=== PATIENT | male | born 1955 | race Caucasian/White ===

== ENCOUNTER 2017-03-23 13:25 | Inpatient (IN) | payer BC ==
[~2017-03-23] VITALS: Ht 160 cm; Wt 76.5 kg
[2017-03-23] MEDS ORDERED: SODIUM CHLORIDE 0.9% 1000ML 1,000 ML IV STA (14:15)
[2017-03-23] MEDS ORDERED: OPTIRAY 320 IV PRN (14:15)
[2017-03-23 14:16] LABS: URINE APPEARANCE CLEAR (CLEAR); URINE BILIRUBIN NEG (NEG); URINE COLOR YELLOW; URINE NITRITE NEG (NEG); URINE PH 6.5 (4.5-7.5); URINE SPECIFIC GRAVITY 1.031 (1.000-1.030); UROBILINOGEN NEG (NEG); ZZUR CULT IF INDIC CLEAN CATCH NO
[2017-03-23 14:17] LABS: MANUAL MICROSCOPIC REQUIRED? NO; REVIEW REQ? NO
--- NOTE | 2017-03-23 14:23 | EMERGENCY ROOM VISIT NOTE ---
History First contact with patient: 13:48 Chief Complaint: ABDOMINAL PAIN Stated Complaint: PAIN LEFT SIDE Nursing Triage Summary: triage note: pt reports left abd pain since yesterday. pt reports he has had pain like this before and it was diverticultis. History of Present Illness The patient is a 61 year old male who presents to the Emergency Room with complaints of abdominal pain. The patient states the pain began yesterday, and came out of nowhere. The patient states the pain is all in his left lower quadrant of the abdomen. He states the pain is sharp, worse when standing from a sitting position. The patient states the pain is better with lying still warm once he is up and moving around. The patient states the pain feels like diverticulitis, which he had approximately 8 years ago. The patient did take some Tylenol yesterday, and states that it did ease the pain somewhat. He rates his pain 5/10 and describes it as sharp. The patient denies any fever, chills, nausea, vomiting, diarrhea, constipation, chest pain, difficulty breathing, headache, dizziness, altered mental status. Review of Systems A complete 10 point review of systems was reviewed with the patient with pertinent positives and negatives as per history of present illness. All else were negative. Past Medical/Surgical History Medical Problems: (1) Acute diverticulitis Diverticulitis Social History Smoking Status: Never Smoker Smokeless Tobacco Use: No Alcohol Use: none Drug Use: none Marital Status: Housing Status: lives with family Occupation Status: employed Current/Historical Medications No Active Prescriptions or Reported Meds Allergies None Physical Exam Vital Signs Date Time Temp Pulse Resp B/P (MAP) Pulse Ox O2 Delivery O2 Flow Rate FiO2 03/23/17 18:24 98 18 124/78 92 Room Air 03/23/17 16:30 85 25 94 03/23/17 16:25 82 27 96 03/23/17 15:55 76 25 96 03/23/17 15:25 79 25 94 03/23/17 15:02 80 14 150/81 94 Room Air 03/23/17 15:02 150/85 03/23/17 14:55 84 25 03/23/17 14:31 155/106 03/23/17 14:25 79 27 95 03/23/17 14:09 91 20 173/102 96 Room Air 03/23/17 14:09 81 03/23/17 14:05 173/102 9/4/17 13:39 36.8 86 18 166/91 95 Room Air Physical Exam VITALS: Vitals are noted on the nurse's note and reviewed by myself. Vital signs stable. GENERAL: This is a 61-year-old white male, in no acute distress, nondiaphoretic , well-developed well-nourished. SKIN: The skin was without rashes, erythema, edema, or bruising. There is no tenting of the skin. Capillary reflex less than 2 seconds. HEAD: Normocephalic atraumatic. EARS: External auditory canals clear, tympanic membranes pearly burnett without erythema or effusion bilaterally. EYES: Pupils equal round and reactive to light and accommodation. Conjunctivae without injection, sclerae without icterus. Extraocular movements intact. NOSE: Patent, turbinates without inflammation or discharge. No sinus tenderness. MOUTH: Mucous membranes moist. Tonsils are not enlarged. Pharynx without erythema or exudate. Uvula midline. Airway patent. Tongue does not deviate. NECK: Supple without nuchal rigidity. No lymphadenopathy. No thyromegaly. Cervical spine is nontender. No JVD. HEART: Regular rate and rhythm without murmurs gallops or rubs. LUNGS: Clear to auscultation bilaterally without wheezes, rales or rhonchi. No dullness to percussion. No retractions or accessory muscle use. ABDOMEN: Positive bowel sounds x 4. Normal tympanic percussion. Significant tenderness on palpation of the left lower quadrant. Otherwise, the abdomen was soft, nontender, without masses or organomegaly. Haines sign negative. No guarding or rebound tenderness. MUSCULOSKELETAL: No muscle atrophy, erythema, or edema noted. Full range of motion without joint tenderness in all extremities. No tenderness to palpation. Normal gait. Strength 5/5 throughout. NEURO: Patient was alert and oriented to person place and time. Normal sensation to light and sharp touch. Deep tendon reflexes 2+ throughout. No focal neurological deficits. Medical Decision & Procedures ER Provider Diagnostic Interpretation: Urinalysis was negative for hematuria or white blood cells. Laboratory Results 03/23/17 14:44 Red Blood Count 4.70, Mean Corpuscular Volume 91.3, Mean Corpuscular Hemoglobin 31.1, Mean Corpuscular Hemoglobin Concent 34.0, Mean Platelet Volume 10.3, Neutrophils (%) (Auto) 75.5, Lymphocytes (%) (Auto) 15.6, Monocytes (%) (Auto) 7.7, Eosinophils (%) (Auto) 0.7, Basophils (%) (Auto) 0.3, Neutrophils # (Auto) 9.05, Lymphocytes # (Auto) 1.87, Monocytes # (Auto) 0.92, Eosinophils # (Auto) 0.08, Basophils # (Auto) 0.03 03/23/17 14:44 Test 03/23/17 13:56 03/23/17 14:00 03/23/17 14:44 Creatine Kinase MB Ratio (0-3.0) Urine Color YELLOW Urine Appearance CLEAR (CLEAR) Urine pH 6.5 (4.5-7.5) Urine Specific [place] 1.031 (1.000-1.030) Urine Protein NEG (NEG) Urine Glucose (UA) NEG (NEG) Urine Ketones NEG (NEG) Urine Occult Blood NEG (NEG) Urine Nitrite NEG (NEG) Urine Bilirubin NEG (NEG) Urine Urobilinogen NEG (NEG) Urine Leukocyte Esterase TRACE (NEG) Urine WBC (Auto) 5-10 /hpf (0-5) Urine RBC (Auto) 0-4 /hpf (0-4) Urine Hyaline Casts (Auto) 1-5 /lpf (0-5) Urine Epithelial Cells (Auto) 5-10 /lpf (0-5) Urine Bacteria (Auto) NEG (NEG) White Blood Count 11.97 K/uL (4.8-10.8) Red Blood Count 4.70 M/uL (4.7-6.1) Hemoglobin 14.6 g/dL (14.0-18.0) Hematocrit 42.9 % (42-52) Mean Corpuscular Volume 91.3 fL (80-100) Mean Corpuscular Hemoglobin 31.1 pg (25-34) Mean Corpuscular Hemoglobin Concent 34.0 g/dl (32-36) Platelet Count 166 K/uL (130-400) Mean Platelet Volume 10.3 fL (7.4-10.4) Neutrophils (%) (Auto) 75.5 % Lymphocytes (%) (Auto) 15.6 % Monocytes (%) (Auto) 7.7 % Eosinophils (%) (Auto) 0.7 % Basophils (%) (Auto) 0.3 % Neutrophils # (Auto) 9.05 K/uL (1.4-6.5) Lymphocytes # (Auto) 1.87 K/uL (1.2-3.4) Monocytes # (Auto) 0.92 K/uL (0.11-0.59) Eosinophils # (Auto) 0.08 K/uL (0-0.5) Basophils # (Auto) 0.03 K/uL (0-0.2) RDW Standard Deviation 43.2 fL (36.4-46.3) RDW Coefficient of Variation 13.0 % (11.5-14.5) Immature Granulocyte % (Auto) 0.2 % Immature Granulocyte # (Auto) 0.02 K/uL (0.00-0.02) Prothrombin Time 11.3 SECONDS (9.0-12.0) Prothromb Time International Ratio 1.1 (0.9-1.1) Anion Gap 6.0 mmol/L (3-11) Est Creatinine Clear Calc Drug Dose 75.6 ml/min Estimated GFR () 103.7 Estimated GFR (Non- 89.5 BUN/Creatinine Ratio 14.1 (10-20) Calcium Level 8.6 mg/dl (8.5-10.1) Total Bilirubin 0.9 mg/dl (0.2-1) Aspartate Amino Transf (AST/SGOT) 14 U/L (15-37) Alanine Aminotransferase (ALT/SGPT) 27 U/L (12-78) Alkaline Phosphatase 58 U/L (45-117) Creatine Kinase MB 0.8 ng/ml (0.5-3.6) Troponin I < 0.015 ng/ml (0-0.045) Total Protein 7.4 gm/dl (6.4-8.2) Albumin 3.5 gm/dl (3.4-5.0) Globulin 3.9 gm/dl (2.5-4.0) Albumin/Globulin Ratio 0.9 (0.9-2) Lipase 82 U/L (73-393) Medications Administered Medications (Trade) Dose Ordered Sig/Calos Route Start Time Stop Time Status Last Admin Dose Admin Sodium Chloride 1,000 ml @ 999 mls/hr Q1H1M STAT IV 03/23/17 14:15 03/23/17 15:15 DC 03/23/17 14:59 999 MLS/HR Ciprofloxacin/ Dextrose (Cipro / D5W) 400 mg NOW STAT IV 03/23/17 18:30 03/23/17 18:33 DC 03/23/17 18:40 400 MG Sodium Chloride 1,000 ml @ 125 mls/hr Q8H IV 03/23/17 18:30 04/22/17 18:29 03/23/17 20:18 125 MLS/HR ECG Indication: abdominal pain Rate (beats per minute): 77 Rhythm: normal sinus Findings: no acute ischemic change, no ectopy Comparison ECG Date: no prior available ED Course The patient was seen and evaluated as above. I did offer the patient pain medication, and he declines at this time. Labs and radiology studies were ordered at this time. The patient was given 1 L normal saline solution bolus. All studies were reviewed by myself, with CT scan reviewed by radiologist as well. I did discuss the findings with the patient at bedside. I discussed the case with Dr. English, general surgeon, who did recommend admission, but states he is uncertain whether the finding is an actual abscess. He states he would like the patient admitted under the hospitalist surgeon, and he will consult. I spoke with Dr. Johnson regarding hospitalization. He states the hospitalist service will accept the admission. He did ask that I start the patient on IV antibiotics. The patient was started on IV Cipro and Flagyl. The patient was admitted in good condition. Medical Decision The patient presented today with left lower quadrant abdominal pain, similar to pain he experienced with diverticulitis. Based on the patient's workup, it does appear that his discomfort is coming from an acute diverticulitis. The patient's CT scan did show possible abscess versus focally inflamed diverticulum , so I do feel that admission is necessary for IV antibiotics and further monitoring. Differential diagnosis includes: Cholecystitis, diverticulitis, pancreatitis, GERD, bowel obstruction, malignancy, cardiac etiology, and others. Medication Reconcilliation Current Medication List: was personally reviewed by me Blood Pressure Screening Patient's blood pressure: Normal blood pressure Impression Primary Impression: Acute diverticulitis Departure Information Dispostion Home / Self-Care Condition GOOD Prescriptions No Active Prescriptions or Reported Meds Referrals Vinicio Gaines M.D. (PCP) Patient Instructions ED Diverticulitis, [facility]
[2017-03-23 15:11] LABS: BASO % 0.3 %; BASO ABS # 0.03 K/uL (0-0.2); COMPLETE YES; EOS % 0.7 %; HEMATOCRIT 42.9 % (42-52); IG% 0.2 %; LYMPH % 15.6 %; LYMPH ABS # 1.87 K/uL (1.2-3.4); MEAN CELL VOLUME 91.3 fL (80-100); MEAN CORPUSCULAR HEMOGLOBIN 31.1 pg (25-34); MEAN PLATELET VOLUME 10.3 fL (7.4-10.4); MONO % 7.7 %; NEUT % 75.5 %; PLATELET COUNT 166 K/uL (130-400); WHITE BLOOD COUNT 11.97 K/uL (4.8-10.8)
[2017-03-23 15:27] LABS: ALT/SGPT 27 U/L (12-78); AST/SGOT 14 U/L (15-37); BLOOD UREA NITROGEN 13 mg/dl (7-18); BUN/CREATININE RATIO 14.1 (10-20); CALCIUM 8.6 mg/dl (8.5-10.1); CARBON DIOXIDE 26 mmol/L (21-32); CHLORIDE 106 mmol/L (98-107); CREATININE 0.92 mg/dl (0.60-1.40); GLUCOSE 167 mg/dl (70-99); POTASSIUM 3.6 mmol/L (3.5-5.1); SODIUM 138 mmol/L (136-145)
[2017-03-23 15:32] LABS: ALB/GLOB RATIO 0.9 (0.9-2); ALKALINE PHOSPHATASE 58 U/L (45-117)
--- NOTE | 2017-03-23 17:06 | DIAGNOSTIC IMAGING REPORT ---
ABD/PELVIS IV AND ORAL CONT HISTORY: 61 years-old Male LLQ Abdominal pain, hx. diverticulitis acute left lower quadrant abdominal pain with history of diverticulitis. Initial exam. COMPARISON: CT abdomen and pelvis 11/26/2006 TECHNIQUE: Multiple axial CT images of the abdomen and pelvis were obtained following the intravenous administration of 93 mL Optiray 320. Oral contrast also used. A dose lowering technique was used consistent with the principals of [place]. FINDINGS: There is mild dependent bibasilar atelectasis. Inferior cardiac chambers are unremarkable. Mild bilateral gynecomastia. The liver, spleen, gallbladder, pancreas and adrenal glands are within normal limits. Kidneys, ureters, urinary bladder are unremarkable. Prostate is mildly enlarged with central coarse parenchymal calcifications. Abdominal aorta is normal in course and caliber with mild atherosclerotic plaquing. No bulky adenopathy. There is no bowel obstruction. There is circumferential wall thickening with moderate surrounding inflammatory stranding and mucosal hyperemia involving the mid descending colon which appears to be centered around several diverticula within this region compatible with acute diverticulitis. There is a focal inflamed diverticulum or developing small intramural abscess, 1.4 x 1.6 cm seen on image 266. There is wall thickening and nondistention involving the descending colon distal to this area as well as the sigmoid colon. There is a small focus of extraluminal air anterior to the inflamed descending colon seen on image 248 compatible with microperforation. There is no bowel obstruction. Soft tissues are unremarkable. Bones are intact. Severe intervertebral disc space narrowing seen at L4-L5 and L5-S1. IMPRESSION: 1. Findings compatible with acute diverticulitis of the distal descending colon. Focus of extraluminal air anterior to the colon is compatible with associated microperforation. 2. Focally inflamed diverticulum or small developing intramural abscess is seen, 1.4 x 1.6 cm. The above report was generated using voice recognition software. It may contain grammatical, syntax or spelling errors. Electronically signed by: Guilherme Boyd M.D. 03/23/2017 5:05 PM Dictated Date/Time: 03/23/2017 4:56 PM
[2017-03-23] MEDS: METRONIDAZOLE 500MG / 100ML NSS IV STA ×2 (18:30→21:09)
[2017-03-23] MEDS ORDERED: MAGNESIUM HYDROXIDE SUSP 30 ML UDC PO PRN (18:30)
[2017-03-23] MEDS ORDERED: ONDANSETRON INJ 2 MG/ML 2 ML VIAL IV PRN (18:30)
[2017-03-23] MEDS ORDERED: CIPROFLOXACIN 400MG / 200ML D5W IV STA (18:30)
[2017-03-23] MEDS ORDERED: ACETAMINOPHEN 325 MG TAB PO PRN (18:30)
[2017-03-23] MEDS ORDERED: ALUMINUM/MAGNESIUM/SIMETH (MAALOX MAX) 30 ML UDC PO PRN (18:30)
[2017-03-23] MEDS ORDERED: POLYETHYLENE (MIRALAX) 17 GM PACK PO PRN (18:30)
--- NOTE | 2017-03-23 18:50 | History and Physical ---
History & Physical Date & Time of Service: Mar 23, 2017 at 18:39 Chief Complaint: Pain Left Side Primary Care Physician: Vinicio Gaines M.D. History of Present Illness Source: patient, family ( at bedside), clinic records, hospital records Patient is a pleasant 61 y/o male, with PMHx of diverticulitis, who presented to the ED with complaints of LLQ abdominal pain x1 day. Pain started yesterday. Worse with movements; 0/10 with no movement. +decreased appetite. Presentation is similar to past episodes of acute diverticulitis- this is his 3 episode ( previous episode in 2006). Last colonoscopy in 2006- diverticular disease, denies any other abnormalities. Patient denies any fever, chills, sweats, lightheadedness, dizziness, vision changes, CP, palpitations, edema, SOB, wheezing, cough, nausea, vomiting, diarrhea, urinary symptoms, melena, numbness/ tingling, weakness, muscle/joint pain, anxiety/depression, active bleeding, or new skin discoloration/changes. Past Medical/Surgical History Past Medical History: Diverticulitis Past Surgical History: Colonoscopy Family History Mother- HTN and kidney disease Social History Smoking Status: Never Smoker Smokeless Tobacco Use: Yes Alcohol Use: none Drug Use: none Marital Status: Housing status: lives with family Occupational Status: employed Multi-Drug Resistant Organisms History of MDRO: No Allergies Coded Allergies: No Known Allergies (Unverified , 03/23/17) Home Medications No Active Prescriptions or Reported Meds Physical Exam Vital Signs Date Time Temp Pulse Resp B/P (MAP) Pulse Ox O2 Delivery O2 Flow Rate FiO2 03/23/17 18:24 98 18 124/78 92 Room Air 03/23/17 16:30 85 25 94 03/23/17 16:25 82 27 96 03/23/17 15:55 76 25 96 03/23/17 15:25 79 25 94 03/23/17 15:02 80 14 150/81 94 Room Air 03/23/17 15:02 150/85 03/23/17 14:55 84 25 03/23/17 14:31 155/106 03/23/17 14:25 79 27 95 03/23/17 14:09 91 20 173/102 96 Room Air 03/23/17 14:09 81 03/23/17 14:05 173/102 03/23/17 13:39 36.8 86 18 166/91 95 Room Air General Appearance: no apparent distress Head: normocephalic, atraumatic Eyes: PERRL ENT: hearing grossly normal Neck: supple Respiratory/Chest: no respiratory distress, no accessory muscle use, + crackles (bilateral lung bases ) Cardiovascular: regular rate, rhythm Abdomen/GI: normal bowel sounds, soft, + tenderness (severe LLQ ttp ) Back: normal inspection Extremities/Musculoskelatal: no calf tenderness, no pedal edema Neurologic/Psych: alert, normal mood/affect, oriented x 3 Skin: normal color, warm/dry, no rash Diagnostics Laboratory Results Results Past 24 Hours Test 03/23/17 13:56 03/23/17 14:00 03/23/17 14:44 Range/Units Creatine Kinase MB Ratio 0-3.0 Urine Color YELLOW Urine Appearance CLEAR CLEAR Urine pH 6.5 4.5-7.5 Urine Specific [place] 1.031 1.000-1.030 Urine Protein NEG NEG Urine Glucose (UA) NEG NEG Urine Ketones NEG NEG Urine Occult Blood NEG NEG Urine Nitrite NEG NEG Urine Bilirubin NEG NEG Urine Urobilinogen NEG NEG Urine Leukocyte Esterase TRACE NEG Urine WBC (Auto) 5-10 0-5 /hpf Urine RBC (Auto) 0-4 0-4 /hpf Urine Hyaline Casts (Auto) 1-5 0-5 /lpf Urine Epithelial Cells (Auto) 5-10 0-5 /lpf Urine Bacteria (Auto) NEG NEG White Blood Count 11.97 4.8-10.8 K/uL Red Blood Count 4.70 4.7-6.1 M/uL Hemoglobin 14.6 14.0-18.0 g/dL Hematocrit 42.9 42-52 % Mean Corpuscular Volume 91.3 80-100 fL Mean Corpuscular Hemoglobin 31.1 25-34 pg Mean Corpuscular Hemoglobin Concent 34.0 32-36 g/dl Platelet Count 166 130-400 K/uL Mean Platelet Volume 10.3 7.4-10.4 fL Neutrophils (%) (Auto) 75.5 % Lymphocytes (%) (Auto) 15.6 % Monocytes (%) (Auto) 7.7 % Eosinophils (%) (Auto) 0.7 % Basophils (%) (Auto) 0.3 % Neutrophils # (Auto) 9.05 1.4-6.5 K/uL Lymphocytes # (Auto) 1.87 1.2-3.4 K/uL Monocytes # (Auto) 0.92 0.11-0.59 K/uL Eosinophils # (Auto) 0.08 0-0.5 K/uL Basophils # (Auto) 0.03 0-0.2 K/uL RDW Standard Deviation 43.2 36.4-46.3 fL RDW Coefficient of Variation 13.0 11.5-14.5 % Immature Granulocyte % (Auto) 0.2 % Immature Granulocyte # (Auto) 0.02 0.00-0.02 K/uL Sodium Level 138 136-145 mmol/L Potassium Level 3.6 3.5-5.1 mmol/L Chloride Level 106 98-107 mmol/L Carbon Dioxide Level 26 21-32 mmol/L Anion Gap 6.0 3-11 mmol/L Blood Urea Nitrogen 13 7-18 mg/dl Creatinine 0.92 0.60-1.40 mg/dl Est Creatinine Clear Calc Drug Dose 75.6 ml/min Estimated GFR () 103.7 Estimated GFR (Non- 89.5 BUN/Creatinine Ratio 14.1 10-20 Random Glucose 167 70-99 mg/dl Calcium Level 8.6 8.5-10.1 mg/dl Total Bilirubin 0.9 0.2-1 mg/dl Aspartate Amino Transf (AST/SGOT) 14 15-37 U/L Alanine Aminotransferase (ALT/SGPT) 27 12-78 U/L Alkaline Phosphatase 58 45-117 U/L Creatine Kinase MB 0.8 0.5-3.6 ng/ml Troponin I < 0.015 0-0.045 ng/ml Total Protein 7.4 6.4-8.2 gm/dl Albumin 3.5 3.4-5.0 gm/dl Globulin 3.9 2.5-4.0 gm/dl Albumin/Globulin Ratio 0.9 0.9-2 Lipase 82 73-393 U/L Diagnostic Radiology ABD/PELVIS IV AND ORAL CONT HISTORY: 61 years-old Male LLQ Abdominal pain, hx. diverticulitis acute left lower quadrant abdominal pain with history of diverticulitis. Initial exam. COMPARISON: CT abdomen and pelvis 11/26/2006 TECHNIQUE: Multiple axial CT images of the abdomen and pelvis were obtained following the intravenous administration of 93 mL Optiray 320. Oral contrast also used. A dose lowering technique was used consistent with the principals of [place]. FINDINGS: There is mild dependent bibasilar atelectasis. Inferior cardiac chambers are unremarkable. Mild bilateral gynecomastia. The liver, spleen, gallbladder, pancreas and adrenal glands are within normal limits. Kidneys, ureters, urinary bladder are unremarkable. Prostate is mildly enlarged with central coarse parenchymal calcifications. Abdominal aorta is normal in course and caliber with mild atherosclerotic plaquing. No bulky adenopathy. There is no bowel obstruction. There is circumferential wall thickening with moderate surrounding inflammatory stranding and mucosal hyperemia involving the mid descending colon which appears to be centered around several diverticula within this region compatible with acute diverticulitis. There is a focal inflamed diverticulum or developing small intramural abscess, 1.4 x 1.6 cm seen on image 266. There is wall thickening and nondistention involving the descending colon distal to this area as well as the sigmoid colon. There is a small focus of extraluminal air anterior to the inflamed descending colon seen on image 248 compatible with microperforation. There is no bowel obstruction. Soft tissues are unremarkable. Bones are intact. Severe intervertebral disc space narrowing seen at L4-L5 and L5-S1. IMPRESSION: 1. Findings compatible with acute diverticulitis of the distal descending colon. Focus of extraluminal air anterior to the colon is compatible with associated microperforation. 2. Focally inflamed diverticulum or small developing intramural abscess is seen, 1.4 x 1.6 cm. The above report was generated using voice recognition software. It may contain grammatical, syntax or spelling errors. Electronically signed by: Guilherme Boyd M.D. 03/23/2017 5:05 PM Dictated Date/Time: 03/23/2017 4:56 PM The status of this report is Signed. Draft = Not yet reviewed or approved by Radiologist. Signed = Reviewed and approved by Radiologist. EKG SEVERINO KIM ID:[id number] 23-MAR-2017 14:05:56 [facility] Normal sinus rhythm Normal ECG No previous ECGs available 25mm/s 10mm/mV 150Hz 8.0 SP2 12SL 241 DEB: 0 Referred by: Referred Self Unconfirmed Vent. rate 77 BPM HI interval 152 ms QRS duration 84 ms QT/QTc 384/434 ms P-R-T axes 36 10 2 1955 (61 yr) Male Room:C03 Loc:15 [employer] Technologist:ANNEMARIE Littlejohn ind: Impression Assessment and Plan Patient is a pleasant 61 y/o male, with PMHx of diverticulitis, who presented to the ED with complaints of LLQ abdominal pain x1 day. LLQ secondary to acute diverticulitis, microperforation, and developing abscess: - Admit to med/surg - NPO - IV NS @ 125 ml/hr - IV Cipro + Flagyl - IV Morphine 1 mg q3 hrs PRN pain - BCx pending - Follow CBC and PRP - General surgery consulted, appreciate recommendations HTN in ED- RESOLVED: IV Hydralazine 10 mg q6 hrs PRN sbp >180 or dbp >100 DVT prophylaxis: Heparin SQ Code Status: LEVEL I, FULL Dispo: From home, lives w/ - no discharge needs anticipated I personally interviewed and examined the patient. I agree with history of present illness and physical exam mentioned above, I also performed my own history taking and examination. I discussed and formulated of the assessment and plan mentioned above. Please refer to the Summary mentioned below. 61 years old man with past medical history of recurrent colitis, last episode was 10 years ago. Patient also had colonoscope 10 years ago. No family history of colon cancer. Presented to the ED with 1 day of left lower quadrant abdominal pain CAT scan showed ascending colitis and possible microperforation with phlegmon. Surgery was consulted and recommended current IV antibiotics. Social history/family history/medications/labs all reviewed Review of systems Denies any headaches double vision plating vision denies any chest pain or palpitation Denies any cough wheezing shortness of breath, denies any diarrhea or blood in the stool Denies any burning sensation in the urine or blood next to the rest of the review of system is negative. Physical exam Gen. not in acute distress average built Neck supple no swelling HEENT no jaundice no pallor normal sclera Heart S1-S2 normal no gallop rub or murmur Lungs clear to auscultation bilaterally normal chest wall expansion Abdomen, left lower quadrant tenderness and guarding, no rebound Lower extremity no edema or clubbing. Assessment recurrent acute colitis with microperforation and possible early abscess formation. Plan Continue Cipro Flagyl Heparin subcutaneous for DVT prophylaxis Nothing by mouth IV fluid hydration Obtain hemoglobin A1c to certify patient risk. Joana Francis MD, [facility] Level of Care Med/Surg Resuscitation Status FULL RESUSCITATION VTE Prophylaxis VTE Risk Assessment Done? Y/N: Yes Risk Level: Low Given or contraindicated: Unfractionated heparin SQ, T.E.D. Stockings, SCD's
[2017-03-23] MEDS ORDERED: HydrALAZINE HCL 20 MG/ML VIAL IV. PRN (19:00)
[2017-03-23] MEDS ORDERED: MoRPHine SULFATE 2 MG/ML CARP IV PRN (19:00)
--- NOTE | 2017-03-23 19:11 | Medical Consult ---
Consultation Date of Consultation: Mar 23, 2017. Attending Physician: Reason for Consultation: Diverticulitis History of Present Illness 61-year-old male with prior history of diverticulitis presented to the emergency department with 24 hours of severe left lower quadrant abdominal pain. He states it felt very similar to his prior episode which occurred about 10 years ago and required outpatient therapy with oral antibiotics. He denies any fevers, nausea. Had some loose stools. Last colonoscopy was 10 years ago. Past Medical/Surgical History History of diverticulosis with diverticulitis. Denies any other significant medical problems denies any other prior abdominal surgery Family History Unremarkable Social History Smoking Status: Never Smoker Smokeless Tobacco Use: Yes Alcohol Use: none Drug Use: none Marital Status: Housing Status: lives with family Occupation Status: employed Allergies Coded Allergies: No Known Allergies (Unverified , 03/23/17) Home Medications Active No Active Prescriptions or Reported Medications Current Inpatient Medications Current Inpatient Medications Medications (Trade) Dose Ordered Sig/Calos Route Start Time Stop Time Status Last Admin Dose Admin Ioversol (Optiray 320) 111 ml UD PRN IV 03/23/17 14:15 03/27/17 14:14 Acetaminophen (Tylenol Tab) 650 mg Q4H PRN PO 03/23/17 18:30 04/22/17 18:29 Al Hydrox/Mg Hydrox/Simethicone (Maalox Max Susp) 15 ml Q4H PRN PO 03/23/17 18:30 04/22/17 18:29 Magnesium Hydroxide (Milk Of Magnesia Susp) 30 ml Q6H PRN PO 03/23/17 18:30 04/22/17 18:29 Polyethylene (Miralax Powder Packet) 17 gm DAILY PRN PO 03/23/17 18:30 04/22/17 18:29 Ondansetron HCl (Zofran Inj) 4 mg Q6H PRN IV 03/23/17 18:30 04/22/17 18:29 Heparin Sodium (Porcine) (Heparin Sq 5000 Unit/0.5ml) 5,000 unit Q12H SQ 03/23/17 18:30 04/22/17 18:29 UNV Sodium Chloride 1,000 ml @ 125 mls/hr Q8H IV 03/23/17 18:30 04/22/17 18:29 UNV Ciprofloxacin/ Dextrose 500 mg/ Prmx 200 ml @ 100 mls/hr Q12 IV 03/23/17 21:00 04/02/17 20:59 UNV Metronidazole 500 mg/Prmx 100 ml @ 100 mls/hr Q8H IV 03/23/17 18:30 04/02/17 18:29 UNV Hydralazine HCl (HydrALAZINE INJ) 10 mg Q6H PRN IV. 03/23/17 19:00 04/22/17 18:59 UNV Morphine Sulfate (MoRPHine SULFATE INJ) 1 mg Q3H PRN IV 03/23/17 19:00 04/06/17 18:59 UNV Review of Systems Constitutional: No fever, No chills, No sweats, No weight loss, No weakness, No fatigue, No problem reported Eyes: No worsening of vision, No eye pain, No redness, No discharge, No diplopia, No problem reported ENT: No hearing loss, No unusual epistaxis, No nasal symptoms, No sore throat, No tinnitus, No dental problems, No trouble swallowing, No problem reported Respiratory: No cough, No sputum, No wheezing, No shortness of breath, No dyspnea on exertion, No dyspnea at rest, No hemoptysis, No problem reported Cardiovascular: No chest pain, No orthopnea, No PND, No edema, No claudication , No palpitations, No problem reported Abdomen: + pain, + diarrhea, No nausea, No vomiting, No constipation, No GI bleeding Musculoskeletal: No joint pain, No muscle pain, No swelling, No calf pain, No problem reported Genitourinary - Male: No hematuria, No dysuria, No urinary frequency, No urinary urgency, No urinary hesitancy, No urinary retention, No urinary incontinence, No penile discharge, No lesions, No impotence, No problem reported Neurologic: No memory loss, No paralysis, No weakness, No numbness/tingling, No vertigo, No balance problems, No problem reported Psychiatric: No depression symptoms, No anhedonism, No anxiety, No insomnia, No substance abuse, No problem reported Endocrine: No fatigue, No excessive thirst, No excessive urination, No problem reported Hematologic / Lymphatic: No abnormal bleeding/bruising, No clotting problems, No swollen lymph nodes, No night sweats, No problem reported Integumentary: No rash, No itch, No new/changing skin lesions, No color change , No bleeding, No problem reported Allergic / Immunologic: No environmental allergies, No seasonal allergies, No pet sensitivities, No food allergies, No hives, No frequent infections, No poor healing, No prolonged convalescence, No problem reported Physical Exam Date Time Temp Pulse Resp B/P (MAP) Pulse Ox O2 Delivery O2 Flow Rate FiO2 03/23/17 18:24 98 18 124/78 92 Room Air 03/23/17 16:30 85 25 94 03/23/17 16:25 82 27 96 03/23/17 15:55 76 25 96 03/23/17 15:25 79 25 94 03/23/17 15:02 80 14 150/81 94 Room Air 03/23/17 15:02 150/85 03/23/17 14:55 84 25 03/23/17 14:31 155/106 03/23/17 14:25 79 27 95 03/23/17 14:09 91 20 173/102 96 Room Air 03/23/17 14:09 81 03/23/17 14:05 173/102 03/23/17 13:39 36.8 86 18 166/91 95 Room Air General Appearance: WD/WN, + mild distress Head: normocephalic, atraumatic Eyes: normal inspection, PERRL, EOMI ENT: normal ENT inspection, hearing grossly normal, TMs normal Neck: supple, no adenopathy, thyroid normal, no JVD, trachea midline Respiratory/Chest: chest non-tender, lungs clear, normal breath sounds, no respiratory distress, no accessory muscle use Cardiovascular: regular rate, rhythm, no edema, no gallop, no JVD, no murmur Abdomen/GI: soft, no organomegaly, no pulsatile mass, + tenderness (Tenderness to palpation in left lower quadrant with localized guarding, no rebound.) Back: normal inspection, no CVA tenderness, no muscle spasm Extremities/Musculoskelatal: normal inspection, no calf tenderness, no pedal edema Neurologic/Psych: spring former hand II-XII nml as tested, no motor/sensory deficits, alert, oriented x 3 Skin: normal color, warm/dry, no rash Lymphatic: no adenopathy Laboratory Results Imaging: ABD/PELVIS IV AND ORAL CONT HISTORY: 61 years-old Male LLQ Abdominal pain, hx. diverticulitis acute left lower quadrant abdominal pain with history of diverticulitis. Initial exam. COMPARISON: CT abdomen and pelvis 11/26/2006 TECHNIQUE: Multiple axial CT images of the abdomen and pelvis were obtained following the intravenous administration of 93 mL Optiray 320. Oral contrast also used. A dose lowering technique was used consistent with the principals of [place]. FINDINGS: There is mild dependent bibasilar atelectasis. Inferior cardiac chambers are unremarkable. Mild bilateral gynecomastia. The liver, spleen, gallbladder, pancreas and adrenal glands are within normal limits. Kidneys, ureters, urinary bladder are unremarkable. Prostate is mildly enlarged with central coarse parenchymal calcifications. Abdominal aorta is normal in course and caliber with mild atherosclerotic plaquing. No bulky adenopathy. There is no bowel obstruction. There is circumferential wall thickening with moderate surrounding inflammatory stranding and mucosal hyperemia involving the mid descending colon which appears to be centered around several diverticula within this region compatible with acute diverticulitis. There is a focal inflamed diverticulum or developing small intramural abscess, 1.4 x 1.6 cm seen on image 266. There is wall thickening and nondistention involving the descending colon distal to this area as well as the sigmoid colon. There is a small focus of extraluminal air anterior to the inflamed descending colon seen on image 248 compatible with microperforation. There is no bowel obstruction. Soft tissues are unremarkable. Bones are intact. Severe intervertebral disc space narrowing seen at L4-L5 and L5-S1. IMPRESSION: 1. Findings compatible with acute diverticulitis of the distal descending colon. Focus of extraluminal air anterior to the colon is compatible with associated microperforation. 2. Focally inflamed diverticulum or small developing intramural abscess is seen, 1.4 x 1.6 cm. The above report was generated using voice recognition software. It may contain grammatical, syntax or spelling errors. Electronically signed by: Guilherme Boyd M.D. 03/23/2017 5:05 PM Last 24 Hours Test 03/23/17 13:56 03/23/17 14:00 03/23/17 14:44 Creatine Kinase MB Ratio Urine Color YELLOW Urine Appearance CLEAR Urine pH 6.5 Urine Specific [place] 1.031 Urine Protein NEG Urine Glucose (UA) NEG Urine Ketones NEG Urine Occult Blood NEG Urine Nitrite NEG Urine Bilirubin NEG Urine Urobilinogen NEG Urine Leukocyte Esterase TRACE Urine WBC (Auto) 5-10 /hpf Urine RBC (Auto) 0-4 /hpf Urine Hyaline Casts (Auto) 1-5 /lpf Urine Epithelial Cells (Auto) 5-10 /lpf Urine Bacteria (Auto) NEG White Blood Count 11.97 K/uL Red Blood Count 4.70 M/uL Hemoglobin 14.6 g/dL Hematocrit 42.9 % Mean Corpuscular Volume 91.3 fL Mean Corpuscular Hemoglobin 31.1 pg Mean Corpuscular Hemoglobin Concent 34.0 g/dl Platelet Count 166 K/uL Mean Platelet Volume 10.3 fL Neutrophils (%) (Auto) 75.5 % Lymphocytes (%) (Auto) 15.6 % Monocytes (%) (Auto) 7.7 % Eosinophils (%) (Auto) 0.7 % Basophils (%) (Auto) 0.3 % Neutrophils # (Auto) 9.05 K/uL Lymphocytes # (Auto) 1.87 K/uL Monocytes # (Auto) 0.92 K/uL Eosinophils # (Auto) 0.08 K/uL Basophils # (Auto) 0.03 K/uL RDW Standard Deviation 43.2 fL RDW Coefficient of Variation 13.0 % Immature Granulocyte % (Auto) 0.2 % Immature Granulocyte # (Auto) 0.02 K/uL Sodium Level 138 mmol/L Potassium Level 3.6 mmol/L Chloride Level 106 mmol/L Carbon Dioxide Level 26 mmol/L Anion Gap 6.0 mmol/L Blood Urea Nitrogen 13 mg/dl Creatinine 0.92 mg/dl Est Creatinine Clear Calc Drug Dose 75.6 ml/min Estimated GFR () 103.7 Estimated GFR (Non- 89.5 BUN/Creatinine Ratio 14.1 Random Glucose 167 mg/dl Calcium Level 8.6 mg/dl Total Bilirubin 0.9 mg/dl Aspartate Amino Transf (AST/SGOT) 14 U/L Alanine Aminotransferase (ALT/SGPT) 27 U/L Alkaline Phosphatase 58 U/L Creatine Kinase MB 0.8 ng/ml Troponin I < 0.015 ng/ml Total Protein 7.4 gm/dl Albumin 3.5 gm/dl Globulin 3.9 gm/dl Albumin/Globulin Ratio 0.9 Lipase 82 U/L Assessment & Plan (1) Acute diverticulitis Diverticulitis A/P: 61-year-old male with acute diverticulitis. Small flecks of extraluminal air is consistent with uncomplicated diverticulitis. The finding on CT scan of the 1.7 centimeter area of inflammation either represents a phlegmon or large inflamed diverticulum. In either case he is stable and there is no indication for surgical intervention at this time. I recommend admission to the hospitalist service with IV antibiotic therapy. Please keep the patient NPO for now. If the patient fails to improve or worsens over the next few days , then I would recommend a repeat CT scan. If an abscess has developed I would recommend percutaneous drainage by Interventional Radiology. If his condition acutely worsens I did discuss that surgery may be necessary. However, I do not feel that this is likely at this point. Patient should have a colonoscopy 6-8 weeks after the diverticulitis has resolved. The plan of care was discussed with the patient and his , as well as the primary admitting team. All questions were answered, the patient expressed understanding and agreed to proceed with the plan of care stated. Surgery will continue to follow, please call with questions or concerns. Eulalia English, DO [phone]
[2017-03-23 20:15] VITALS: BP 156/92; PULSE 87; TEMP 36.9; O2SAT 94; Ht 160 cm; Wt 76.5 kg
[2017-03-23] MEDS: SODIUM CHLORIDE 0.9% 1000ML 1,000 ML IV SCH (20:18)
[2017-03-23 20:43] LABS: INR 1.1 (0.9-1.1); PROTHROMBIN TIME (PATIENT) 11.3 SECONDS (9.0-12.0)
[2017-03-23 20:55] LABS: CHOLESTEROL/HDL RATIO 2.7
[2017-03-23] MEDS: HEPARIN SOD 5000 UNIT/0.5 ML CARP SQ SCH (21:22)
[2017-03-23] MEDS: METRONIDAZOLE / NSS 500 MG in PREMIXED NSS 100 ML IV SCH (21:43)
[2017-03-23 22:55] VITALS: BP 120/71; PULSE 76; TEMP 37.1; O2SAT 93
[2017-03-24] MEDS: SODIUM CHLORIDE 0.9% 1000ML 1,000 ML IV SCH ×2 (02:22→08:42)
[2017-03-24] MEDS: METRONIDAZOLE / NSS 500 MG in PREMIXED NSS 100 ML IV SCH ×3 (04:15→20:29)
[2017-03-24] MEDS: CIPROFLOXACIN / D5W 400 MG in PREMIXED IN D5W 200 ML IV SCH ×2 (06:05→18:27)
[2017-03-24 06:08] LABS: BASO % 0.3 %; BASO ABS # 0.03 K/uL (0-0.2); COMPLETE YES; EOS % 0.8 %; HEMATOCRIT 39.4 % (42-52); IG% 0.3 %; LYMPH % 19.1 %; LYMPH ABS # 2.17 K/uL (1.2-3.4); MEAN CELL VOLUME 90.8 fL (80-100); MEAN CORPUSCULAR HGB CONC 35.3 g/dl (32-36); MEAN PLATELET VOLUME 10.2 fL (7.4-10.4); MONO % 10.2 %; NEUT % 69.3 %; PLATELET COUNT 154 K/uL (130-400); RED BLOOD COUNT 4.34 M/uL (4.7-6.1); WHITE BLOOD COUNT 11.38 K/uL (4.8-10.8)
[2017-03-24 06:23] LABS: ESTIMATED AVERAGE GLUCOSE 108 mg/dl; HA1C FLAG Normal (Normal)
[2017-03-24 06:43] LABS: BUN/CREATININE RATIO 10.8 (10-20); CALCIUM 8.6 mg/dl (8.5-10.1); CREATININE 0.91 mg/dl (0.60-1.40); POTASSIUM 3.9 mmol/L (3.5-5.1)
[2017-03-24 06:46] LABS: ALB/GLOB RATIO 0.8 (0.9-2); PHOSPHORUS 2.2 mg/dl (2.5-4.9)
[2017-03-24 07:14] VITALS: BP 129/76; PULSE 77; TEMP 36.9; O2SAT 92
--- NOTE | 2017-03-24 08:26 | Surgery Progress Note ---
Surgery Progress Note Date of Service Mar 24, 2017. Subjective bowels moving more/loose, pain improved (now minimal) no chills or fevers Objective Vital Signs: Date Time Temp Pulse Resp B/P (MAP) Pulse Ox O2 Delivery O2 Flow Rate FiO2 03/24/17 07:15 Room Air 03/24/17 07:14 36.9 77 15 129/76 (93) 92 Room Air 03/24/17 00:15 Room Air 03/23/17 22:55 37.1 76 18 120/71 (87) 93 Room Air 03/23/17 20:15 94 Room Air 03/23/17 20:15 36.9 87 16 156/92 94 Room Air 03/23/17 20:15 36.9 87 16 156/92 (113) 94 Room Air 03/23/17 19:04 83 18 123/76 95 03/23/17 18:24 98 18 124/78 92 Room Air 03/23/17 16:30 85 25 94 03/23/17 16:25 82 27 96 03/23/17 15:55 76 25 96 03/23/17 15:25 79 25 94 03/23/17 15:02 80 14 150/81 94 Room Air 03/23/17 15:02 150/85 03/23/17 14:55 84 25 03/23/17 14:31 155/106 03/23/17 14:25 79 27 95 03/23/17 14:09 91 20 173/102 96 Room Air 03/23/17 14:09 81 03/23/17 14:05 173/102 03/23/17 13:39 36.8 86 18 166/91 95 Room Air Abdomen: soft, + tenderness (mild LLQ, no guarding) Laboratory Results: Results Past 24 Hours Test 03/23/17 13:56 03/23/17 14:00 03/23/17 14:44 03/24/17 05:57 Range/Units Creatine Kinase MB Ratio 0-3.0 Urine Color YELLOW Urine Appearance CLEAR CLEAR Urine pH 6.5 4.5-7.5 Urine Specific [place] 1.031 1.000-1.030 Urine Protein NEG NEG Urine Glucose (UA) NEG NEG Urine Ketones NEG NEG Urine Occult Blood NEG NEG Urine Nitrite NEG NEG Urine Bilirubin NEG NEG Urine Urobilinogen NEG NEG Urine Leukocyte Esterase TRACE NEG Urine WBC (Auto) 5-10 0-5 /hpf Urine RBC (Auto) 0-4 0-4 /hpf Urine Hyaline Casts (Auto) 1-5 0-5 /lpf Urine Epithelial Cells (Auto) 5-10 0-5 /lpf Urine Bacteria (Auto) NEG NEG White Blood Count 11.97 11.38 4.8-10.8 K/uL Red Blood Count 4.70 4.34 4.7-6.1 M/uL Hemoglobin 14.6 13.9 14.0-18.0 g/dL Hematocrit 42.9 39.4 42-52 % Mean Corpuscular Volume 91.3 90.8 80-100 fL Mean Corpuscular Hemoglobin 31.1 32.0 25-34 pg Mean Corpuscular Hemoglobin Concent 34.0 35.3 32-36 g/dl Platelet Count 166 154 130-400 K/uL Mean Platelet Volume 10.3 10.2 7.4-10.4 fL Neutrophils (%) (Auto) 75.5 69.3 % Lymphocytes (%) (Auto) 15.6 19.1 % Monocytes (%) (Auto) 7.7 10.2 % Eosinophils (%) (Auto) 0.7 0.8 % Basophils (%) (Auto) 0.3 0.3 % Neutrophils # (Auto) 9.05 7.90 1.4-6.5 K/uL Lymphocytes # (Auto) 1.87 2.17 1.2-3.4 K/uL Monocytes # (Auto) 0.92 1.16 0.11-0.59 K/uL Eosinophils # (Auto) 0.08 0.09 0-0.5 K/uL Basophils # (Auto) 0.03 0.03 0-0.2 K/uL RDW Standard Deviation 43.2 43.7 36.4-46.3 fL RDW Coefficient of Variation 13.0 13.1 11.5-14.5 % Immature Granulocyte % (Auto) 0.2 0.3 % Immature Granulocyte # (Auto) 0.02 0.03 0.00-0.02 K/uL Prothrombin Time 11.3 9.0-12.0 SECONDS Prothromb Time International Ratio 1.1 0.9-1.1 Sodium Level 138 139 136-145 mmol/L Potassium Level 3.6 3.9 3.5-5.1 mmol/L Chloride Level 106 109 98-107 mmol/L Carbon Dioxide Level 26 25 21-32 mmol/L Anion Gap 6.0 5.0 3-11 mmol/L Blood Urea Nitrogen 13 10 7-18 mg/dl Creatinine 0.92 0.91 0.60-1.40 mg/dl Est Creatinine Clear Calc Drug Dose 75.6 78.0 ml/min Estimated GFR () 103.7 105.1 Estimated GFR (Non- 89.5 90.6 BUN/Creatinine Ratio 14.1 10.8 10-20 Random Glucose 167 96 70-99 mg/dl Calcium Level 8.6 8.6 8.5-10.1 mg/dl Total Bilirubin 0.9 1.2 0.2-1 mg/dl Aspartate Amino Transf (AST/SGOT) 14 11 15-37 U/L Alanine Aminotransferase (ALT/SGPT) 27 20 12-78 U/L Alkaline Phosphatase 58 49 45-117 U/L Creatine Kinase MB 0.8 0.5-3.6 ng/ml Troponin I < 0.015 0-0.045 ng/ml Total Protein 7.4 6.8 6.4-8.2 gm/dl Albumin 3.5 3.1 3.4-5.0 gm/dl Globulin 3.9 3.7 2.5-4.0 gm/dl Albumin/Globulin Ratio 0.9 0.8 0.9-2 Triglycerides Level 69 0-150 mg/dl Cholesterol Level 209 0-200 mg/dl HDL Cholesterol 77 mg/dl LDL Cholesterol, Calculated 118 mg/dl VLDL Cholesterol, Calculated 14 mg/dl Cholesterol/HDL Ratio 2.7 Lipase 82 73-393 U/L Estimated Average Glucose 108 mg/dl Hemoglobin A1c 5.4 4.5-5.6 % Lactic Acid Level 0.8 0.4-2.0 mmol/L Phosphorus Level 2.2 2.5-4.9 mg/dl Magnesium Level 2.0 1.8-2.4 mg/dl Microbiology Results 03/23/17 Blood Culture, Received Pending 03/23/17 Blood Culture, Received Pending Assessment & Plan diverticulitis with micro perf WBC stable cont IV cipro/flagyl can start clears Patient seen and examined, labs reviewed, agree with above. Overall improving, wbc still mildly elevated. Cont iv abx, may have clears, advised patient to take it slow. Eulalia English, DO [phone]
[2017-03-24] MEDS: HEPARIN SOD 5000 UNIT/0.5 ML CARP SQ SCH ×2 (08:37→21:16)
[2017-03-24] MEDS: FAMOTIDINE IV INJ 20 MG in DEXTROSE 5% 100ML 100 ML IV SCH (08:42)
--- NOTE | 2017-03-24 09:00 | Hospitalist Progress Note ---
Hospitalist Progress Note Date of Service Mar 24, 2017. Subjective Pt evaluation today including: conversation w/ patient, conversation w/ family , physical exam, chart review, lab review, review of studies, conversation w/ information services consultant (Gen Surg - Dr. English), review of inpatient medication list Patient seen and evaluated. Sitting up in bed. Reports pain is non-existent at rest but exacerbates with movement. Reports this is improved from yesterday. Does not verbalizes any other complaints or issues. No surgical indication at this time. WBC improving. Patient reports a colonoscopy many years ago and cannot recall who performed this. Does not follow with GI on a regular basis. No BM yet. Constitutional: No fever, No chills Respiratory: No shortness of breath Cardiovascular: No chest pain Abdomen: + pain (LLQ with movement/palpation), No nausea, No vomiting, No diarrhea, No constipation Musculoskeletal: No swelling, No calf pain Heme: No abnormal bleeding/bruising Medications Current Inpatient Medications Medications (Trade) Dose Ordered Sig/Calos Route Start Time Stop Time Status Last Admin Dose Admin Ioversol (Optiray 320) 111 ml UD PRN IV 03/23/17 14:15 03/27/17 14:14 Acetaminophen (Tylenol Tab) 650 mg Q4H PRN PO 03/23/17 18:30 04/22/17 18:29 Al Hydrox/Mg Hydrox/Simethicone (Maalox Max Susp) 15 ml Q4H PRN PO 03/23/17 18:30 04/22/17 18:29 Magnesium Hydroxide (Milk Of Magnesia Susp) 30 ml Q6H PRN PO 03/23/17 18:30 04/22/17 18:29 Polyethylene (Miralax Powder Packet) 17 gm DAILY PRN PO 03/23/17 18:30 04/22/17 18:29 Ondansetron HCl (Zofran Inj) 4 mg Q6H PRN IV 03/23/17 18:30 04/22/17 18:29 Heparin Sodium (Porcine) (Heparin Sq 5000 Unit/0.5ml) 5,000 unit Q12H SQ 03/23/17 21:00 04/22/17 20:59 03/23/17 21:22 5,000 UNIT Sodium Chloride 1,000 ml @ 125 mls/hr Q8H IV 03/23/17 18:30 04/22/17 18:29 03/24/17 08:42 125 MLS/HR Ciprofloxacin/ Dextrose 400 mg/ Prmx 200 ml @ 100 mls/hr Q12@0600,1800 IV 03/24/17 06:00 04/02/17 17:59 03/24/17 06:05 100 MLS/HR Metronidazole 500 mg/Prmx 100 ml @ 100 mls/hr Q8H IV 03/23/17 20:00 04/02/17 19:59 03/24/17 04:15 100 MLS/HR Hydralazine HCl (HydrALAZINE INJ) 10 mg Q6H PRN IV. 03/23/17 19:00 04/22/17 18:59 Morphine Sulfate (MoRPHine SULFATE INJ) 1 mg Q3H PRN IV 03/23/17 19:00 04/06/17 18:59 Famotidine 20 mg/ Dextrose 102 ml @ 200 mls/hr DAILY@0900 IV 03/24/17 09:00 04/23/17 08:59 03/24/17 08:42 200 MLS/HR Objective Vital Signs Date Time Temp Pulse Resp B/P (MAP) Pulse Ox O2 Delivery O2 Flow Rate FiO2 03/24/17 07:15 Room Air 03/24/17 07:14 36.9 77 15 129/76 (93) 92 Room Air 03/24/17 00:15 Room Air 03/23/17 22:55 37.1 76 18 120/71 (87) 93 Room Air 03/23/17 20:15 94 Room Air 03/23/17 20:15 36.9 87 16 156/92 94 Room Air 03/23/17 20:15 36.9 87 16 156/92 (113) 94 Room Air 03/23/17 19:04 83 18 123/76 95 03/23/17 18:24 98 18 124/78 92 Room Air 03/23/17 16:30 85 25 94 03/23/17 16:25 82 27 96 03/23/17 15:55 76 25 96 03/23/17 15:25 79 25 94 03/23/17 15:02 80 14 150/81 94 Room Air 03/23/17 15:02 150/85 03/23/17 14:55 84 25 03/23/17 14:31 155/106 03/23/17 14:25 79 27 95 03/23/17 14:09 91 20 173/102 96 Room Air 03/23/17 14:09 81 03/23/17 14:05 173/102 03/23/17 13:39 36.8 86 18 166/91 95 Room Air Physical Exam General Appearance: WD/WN, no apparent distress Eyes: sclerae normal ENT: hearing grossly normal Neck: supple, no JVD, trachea midline Respiratory/Chest: lungs clear, normal breath sounds, no respiratory distress, no accessory muscle use Cardiovascular: regular rate, rhythm, no gallop, no murmur Abdomen: normal bowel sounds, soft, + tenderness (LLQ) Extremities: no pedal edema, no calf tenderness Neurologic/Psychiatric: alert, oriented x 3 Skin: normal color, warm/dry Laboratory Results Last 24 Hours Test 03/23/17 13:56 03/23/17 14:00 03/23/17 14:44 03/24/17 05:57 Creatine Kinase MB Ratio Urine Color YELLOW Urine Appearance CLEAR Urine pH 6.5 Urine Specific [place] 1.031 Urine Protein NEG Urine Glucose (UA) NEG Urine Ketones NEG Urine Occult Blood NEG Urine Nitrite NEG Urine Bilirubin NEG Urine Urobilinogen NEG Urine Leukocyte Esterase TRACE Urine WBC (Auto) 5-10 /hpf Urine RBC (Auto) 0-4 /hpf Urine Hyaline Casts (Auto) 1-5 /lpf Urine Epithelial Cells (Auto) 5-10 /lpf Urine Bacteria (Auto) NEG White Blood Count 11.97 K/uL 11.38 K/uL Red Blood Count 4.70 M/uL 4.34 M/uL Hemoglobin 14.6 g/dL 13.9 g/dL Hematocrit 42.9 % 39.4 % Mean Corpuscular Volume 91.3 fL 90.8 fL Mean Corpuscular Hemoglobin 31.1 pg 32.0 pg Mean Corpuscular Hemoglobin Concent 34.0 g/dl 35.3 g/dl Platelet Count 166 K/uL 154 K/uL Mean Platelet Volume 10.3 fL 10.2 fL Neutrophils (%) (Auto) 75.5 % 69.3 % Lymphocytes (%) (Auto) 15.6 % 19.1 % Monocytes (%) (Auto) 7.7 % 10.2 % Eosinophils (%) (Auto) 0.7 % 0.8 % Basophils (%) (Auto) 0.3 % 0.3 % Neutrophils # (Auto) 9.05 K/uL 7.90 K/uL Lymphocytes # (Auto) 1.87 K/uL 2.17 K/uL Monocytes # (Auto) 0.92 K/uL 1.16 K/uL Eosinophils # (Auto) 0.08 K/uL 0.09 K/uL Basophils # (Auto) 0.03 K/uL 0.03 K/uL RDW Standard Deviation 43.2 fL 43.7 fL RDW Coefficient of Variation 13.0 % 13.1 % Immature Granulocyte % (Auto) 0.2 % 0.3 % Immature Granulocyte # (Auto) 0.02 K/uL 0.03 K/uL Prothrombin Time 11.3 SECONDS Prothromb Time International Ratio 1.1 Sodium Level 138 mmol/L 139 mmol/L Potassium Level 3.6 mmol/L 3.9 mmol/L Chloride Level 106 mmol/L 109 mmol/L Carbon Dioxide Level 26 mmol/L 25 mmol/L Anion Gap 6.0 mmol/L 5.0 mmol/L Blood Urea Nitrogen 13 mg/dl 10 mg/dl Creatinine 0.92 mg/dl 0.91 mg/dl Est Creatinine Clear Calc Drug Dose 75.6 ml/min 78.0 ml/min Estimated GFR () 103.7 105.1 Estimated GFR (Non- 89.5 90.6 BUN/Creatinine Ratio 14.1 10.8 Random Glucose 167 mg/dl 96 mg/dl Calcium Level 8.6 mg/dl 8.6 mg/dl Total Bilirubin 0.9 mg/dl 1.2 mg/dl Aspartate Amino Transf (AST/SGOT) 14 U/L 11 U/L Alanine Aminotransferase (ALT/SGPT) 27 U/L 20 U/L Alkaline Phosphatase 58 U/L 49 U/L Creatine Kinase MB 0.8 ng/ml Troponin I < 0.015 ng/ml Total Protein 7.4 gm/dl 6.8 gm/dl Albumin 3.5 gm/dl 3.1 gm/dl Globulin 3.9 gm/dl 3.7 gm/dl Albumin/Globulin Ratio 0.9 0.8 Triglycerides Level 69 mg/dl Cholesterol Level 209 mg/dl HDL Cholesterol 77 mg/dl LDL Cholesterol, Calculated 118 mg/dl VLDL Cholesterol, Calculated 14 mg/dl Cholesterol/HDL Ratio 2.7 Lipase 82 U/L Estimated Average Glucose 108 mg/dl Hemoglobin A1c 5.4 % Lactic Acid Level 0.8 mmol/L Phosphorus Level 2.2 mg/dl Magnesium Level 2.0 mg/dl Assessment and Plan Patient is a pleasant 61 y/o male, with PMHx of diverticulitis, who presented to the ED with complaints of LLQ abdominal pain x1 day. Acute Diverticulitis with Microperforation and Developing Abscess: - Cipro 400 mg IV BID and Flagyl 500 mg IV Q8H - Pepcide 20 mg IV daily - Gen Surg following - no indication for surgical intervention at this time - advance diet to clear liquids - Recommend colonoscopy in 6-8 weeks after resolution HTN: - May be situational or pain response - continue to monitor and use Hydralazine PRN DVT Prophylaxis: Heparin 5000 units SC BID Code Status: FULL RESUSCITATION Disposition: - From home - no needs anticipated - await clinical response - possible D/C 1-2 days Continued [facility] stay due to: multiple IV medications needed Discharge planning: home
[2017-03-24 15:11] VITALS: BP 166/99; PULSE 85; TEMP 37; O2SAT 96
[2017-03-24 22:50] VITALS: BP 119/65; PULSE 71; TEMP 36.9; O2SAT 94
[2017-03-25] MEDS: METRONIDAZOLE / NSS 500 MG in PREMIXED NSS 100 ML IV SCH ×3 (03:34→20:00)
[2017-03-25] MEDS: CIPROFLOXACIN / D5W 400 MG in PREMIXED IN D5W 200 ML IV SCH ×2 (05:35→18:23)
[2017-03-25 06:20] LABS: BASO % 0.4 %; BASO ABS # 0.03 K/uL (0-0.2); COMPLETE YES; EOS % 2.1 %; HEMATOCRIT 39.5 % (42-52); IG% 0.3 %; LYMPH % 24.4 %; LYMPH ABS # 1.83 K/uL (1.2-3.4); MEAN CELL VOLUME 90.2 fL (80-100); MEAN CORPUSCULAR HEMOGLOBIN 31.3 pg (25-34); MEAN CORPUSCULAR HGB CONC 34.7 g/dl (32-36); MEAN PLATELET VOLUME 9.8 fL (7.4-10.4); MONO % 10.5 %; NEUT % 62.3 %; PLATELET COUNT 164 K/uL (130-400); RED BLOOD COUNT 4.38 M/uL (4.7-6.1); WHITE BLOOD COUNT 7.51 K/uL (4.8-10.8)
[2017-03-25 06:55] LABS: BUN/CREATININE RATIO 10.5 (10-20); CALCIUM 8.5 mg/dl (8.5-10.1); CREATININE 0.85 mg/dl (0.60-1.40); POTASSIUM 3.6 mmol/L (3.5-5.1)
--- NOTE | 2017-03-25 07:18 | Surgery Progress Note ---
Surgery Progress Note Date of Service Mar 25, 2017. Subjective + feeling well, + bowel movement (loose), + diet (clears), No complaints (pain resolved) Objective Vital Signs: Date Time Temp Pulse Resp B/P (MAP) Pulse Ox O2 Delivery O2 Flow Rate FiO2 03/24/17 23:15 Room Air 03/24/17 22:50 36.9 71 16 119/65 (83) 94 Room Air 03/24/17 19:55 Room Air 03/24/17 17:00 Room Air 03/24/17 15:11 37.0 85 18 166/99 (121) 96 Room Air Abdomen: non tender, non distended, soft Laboratory Results: Results Past 24 Hours Test 03/25/17 05:56 Range/Units White Blood Count 7.51 4.8-10.8 K/uL Red Blood Count 4.38 4.7-6.1 M/uL Hemoglobin 13.7 14.0-18.0 g/dL Hematocrit 39.5 42-52 % Mean Corpuscular Volume 90.2 80-100 fL Mean Corpuscular Hemoglobin 31.3 25-34 pg Mean Corpuscular Hemoglobin Concent 34.7 32-36 g/dl Platelet Count 164 130-400 K/uL Mean Platelet Volume 9.8 7.4-10.4 fL Neutrophils (%) (Auto) 62.3 % Lymphocytes (%) (Auto) 24.4 % Monocytes (%) (Auto) 10.5 % Eosinophils (%) (Auto) 2.1 % Basophils (%) (Auto) 0.4 % Neutrophils # (Auto) 4.68 1.4-6.5 K/uL Lymphocytes # (Auto) 1.83 1.2-3.4 K/uL Monocytes # (Auto) 0.79 0.11-0.59 K/uL Eosinophils # (Auto) 0.16 0-0.5 K/uL Basophils # (Auto) 0.03 0-0.2 K/uL RDW Standard Deviation 42.1 36.4-46.3 fL RDW Coefficient of Variation 12.7 11.5-14.5 % Immature Granulocyte % (Auto) 0.3 % Immature Granulocyte # (Auto) 0.02 0.00-0.02 K/uL Sodium Level 140 136-145 mmol/L Potassium Level 3.6 3.5-5.1 mmol/L Chloride Level 109 98-107 mmol/L Carbon Dioxide Level 24 21-32 mmol/L Anion Gap 7.0 3-11 mmol/L Blood Urea Nitrogen 9 7-18 mg/dl Creatinine 0.85 0.60-1.40 mg/dl Est Creatinine Clear Calc Drug Dose 83.6 ml/min Estimated GFR () 109.0 Estimated GFR (Non- 94.0 BUN/Creatinine Ratio 10.5 10-20 Random Glucose 100 70-99 mg/dl Calcium Level 8.5 8.5-10.1 mg/dl Assessment & Plan diverticulitis with micro perf WBC normal advance to full liquids, has handout for low residue diet at home cont IV cipro/flagyl
[2017-03-25 07:27] VITALS: BP 143/83; PULSE 77; TEMP 36.7; O2SAT 95
[2017-03-25] MEDS: HEPARIN SOD 5000 UNIT/0.5 ML CARP SQ SCH ×2 (08:33→21:00)
[2017-03-25] MEDS: FAMOTIDINE IV INJ 20 MG in DEXTROSE 5% 100ML 100 ML IV SCH (08:33)
--- NOTE | 2017-03-25 13:00 | Hospitalist Progress Note ---
Hospitalist Progress Note Date of Service Mar 25, 2017. Subjective Pt evaluation today including: conversation w/ patient, physical exam, chart review, lab review, review of studies, review of inpatient medication list Patient seen and evaluated. Reports no abdominal pain at this time. Leukocytosis resolved and tolerating clear liquid diet. His diet was advanced this morning. Had a loose BM this AM. Verbalizes no other complaints. Constitutional: No fever, No chills Respiratory: No shortness of breath Cardiovascular: No chest pain Abdomen: No pain, No nausea, No vomiting, No diarrhea, No constipation Musculoskeletal: No swelling, No calf pain Male : No dysuria Heme: No abnormal bleeding/bruising Medications Current Inpatient Medications Medications (Trade) Dose Ordered Sig/Calos Route Start Time Stop Time Status Last Admin Dose Admin Ioversol (Optiray 320) 111 ml UD PRN IV 03/23/17 14:15 03/27/17 14:14 Acetaminophen (Tylenol Tab) 650 mg Q4H PRN PO 03/23/17 18:30 04/22/17 18:29 Al Hydrox/Mg Hydrox/Simethicone (Maalox Max Susp) 15 ml Q4H PRN PO 03/23/17 18:30 04/22/17 18:29 Magnesium Hydroxide (Milk Of Magnesia Susp) 30 ml Q6H PRN PO 03/23/17 18:30 04/22/17 18:29 Polyethylene (Miralax Powder Packet) 17 gm DAILY PRN PO 03/23/17 18:30 04/22/17 18:29 Ondansetron HCl (Zofran Inj) 4 mg Q6H PRN IV 03/23/17 18:30 04/22/17 18:29 Heparin Sodium (Porcine) (Heparin Sq 5000 Unit/0.5ml) 5,000 unit Q12H SQ 03/23/17 21:00 04/22/17 20:59 03/24/17 21:16 5,000 UNIT Ciprofloxacin/ Dextrose 400 mg/ Prmx 200 ml @ 100 mls/hr Q12@0600,1800 IV 03/24/17 06:00 04/02/17 17:59 03/25/17 05:35 100 MLS/HR Metronidazole 500 mg/Prmx 100 ml @ 100 mls/hr Q8H IV 03/23/17 20:00 04/02/17 19:59 03/25/17 11:19 100 MLS/HR Hydralazine HCl (HydrALAZINE INJ) 10 mg Q6H PRN IV. 03/23/17 19:00 04/22/17 18:59 Morphine Sulfate (MoRPHine SULFATE INJ) 1 mg Q3H PRN IV 03/23/17 19:00 04/06/17 18:59 Famotidine 20 mg/ Dextrose 102 ml @ 200 mls/hr DAILY@0900 IV 03/24/17 09:00 04/23/17 08:59 03/24/17 08:42 200 MLS/HR Objective Vital Signs Date Time Temp Pulse Resp B/P (MAP) Pulse Ox O2 Delivery O2 Flow Rate FiO2 03/25/17 07:30 Room Air 03/25/17 07:27 36.7 77 15 143/83 (103) 95 Room Air 03/24/17 23:15 Room Air 03/24/17 22:50 36.9 71 16 119/65 (83) 94 Room Air 03/24/17 19:55 Room Air 03/24/17 17:00 Room Air 03/24/17 15:11 37.0 85 18 166/99 (121) 96 Room Air Physical Exam General Appearance: WD/WN, no apparent distress Eyes: sclerae normal ENT: hearing grossly normal Neck: supple, no JVD, trachea midline Respiratory/Chest: lungs clear, normal breath sounds, no respiratory distress, no accessory muscle use Cardiovascular: regular rate, rhythm, no gallop, no murmur Abdomen: normal bowel sounds, non tender, soft Extremities: non-tender, no calf tenderness Neurologic/Psychiatric: alert, oriented x 3 Skin: normal color, warm/dry Laboratory Results Last 24 Hours Test 03/25/17 05:56 White Blood Count 7.51 K/uL Red Blood Count 4.38 M/uL Hemoglobin 13.7 g/dL Hematocrit 39.5 % Mean Corpuscular Volume 90.2 fL Mean Corpuscular Hemoglobin 31.3 pg Mean Corpuscular Hemoglobin Concent 34.7 g/dl Platelet Count 164 K/uL Mean Platelet Volume 9.8 fL Neutrophils (%) (Auto) 62.3 % Lymphocytes (%) (Auto) 24.4 % Monocytes (%) (Auto) 10.5 % Eosinophils (%) (Auto) 2.1 % Basophils (%) (Auto) 0.4 % Neutrophils # (Auto) 4.68 K/uL Lymphocytes # (Auto) 1.83 K/uL Monocytes # (Auto) 0.79 K/uL Eosinophils # (Auto) 0.16 K/uL Basophils # (Auto) 0.03 K/uL RDW Standard Deviation 42.1 fL RDW Coefficient of Variation 12.7 % Immature Granulocyte % (Auto) 0.3 % Immature Granulocyte # (Auto) 0.02 K/uL Sodium Level 140 mmol/L Potassium Level 3.6 mmol/L Chloride Level 109 mmol/L Carbon Dioxide Level 24 mmol/L Anion Gap 7.0 mmol/L Blood Urea Nitrogen 9 mg/dl Creatinine 0.85 mg/dl Est Creatinine Clear Calc Drug Dose 83.6 ml/min Estimated GFR () 109.0 Estimated GFR (Non- 94.0 BUN/Creatinine Ratio 10.5 Random Glucose 100 mg/dl Calcium Level 8.5 mg/dl Assessment and Plan Patient is a pleasant 61 y/o male, with PMHx of diverticulitis, who presented to the ED with complaints of LLQ abdominal pain x1 day. Acute Diverticulitis with Microperforation and Developing Abscess: - Cipro 400 mg IV BID and Flagyl 500 mg IV Q8H - Pepcid 20 mg IV daily - Gen Surg following - no indication for surgical intervention at this time - advance diet to full liquids - Recommend colonoscopy in 6-8 weeks after resolution HTN: - May be situational or pain response - continue to monitor and use Hydralazine PRN DVT Prophylaxis: Heparin 5000 units SC BID Code Status: FULL RESUSCITATION Disposition: - From home - no needs anticipated - possible D/C tomorrow Continued [facility] stay due to: multiple IV medications needed Discharge planning: home
[2017-03-25 15:35] VITALS: BP 178/98; PULSE 83; TEMP 36.8; O2SAT 96
[2017-03-25 16:13] VITALS: BP 159/97; PULSE 80
[2017-03-25 23:11] VITALS: BP 127/73; PULSE 67; TEMP 36.8; O2SAT 96
[2017-03-26] MEDS: METRONIDAZOLE / NSS 500 MG in PREMIXED NSS 100 ML IV SCH (03:47)
[2017-03-26] MEDS: CIPROFLOXACIN / D5W 400 MG in PREMIXED IN D5W 200 ML IV SCH (05:29)
[2017-03-26 05:52] LABS: BASO % 0.7 %; BASO ABS # 0.04 K/uL (0-0.2); COMPLETE YES; EOS % 3.7 %; HEMATOCRIT 38.9 % (42-52); IG% 0.2 %; LYMPH % 32.2 %; LYMPH ABS # 1.98 K/uL (1.2-3.4); MEAN CELL VOLUME 90.3 fL (80-100); MEAN CORPUSCULAR HEMOGLOBIN 31.6 pg (25-34); MEAN PLATELET VOLUME 9.8 fL (7.4-10.4); MONO % 12.2 %; PLATELET COUNT 181 K/uL (130-400); RED BLOOD COUNT 4.31 M/uL (4.7-6.1); WHITE BLOOD COUNT 6.15 K/uL (4.8-10.8)
[2017-03-26 06:30] LABS: BUN/CREATININE RATIO 9.3 (10-20); CALCIUM 8.8 mg/dl (8.5-10.1); POTASSIUM 4.2 mmol/L (3.5-5.1)
[2017-03-26 07:27] VITALS: BP 158/98; PULSE 75; TEMP 36.6; O2SAT 93
--- NOTE | 2017-03-26 07:57 | Surgery Progress Note ---
Surgery Progress Note Date of Service Mar 26, 2017. Subjective pain resolved, tolerating diet Objective Vital Signs: Date Time Temp Pulse Resp B/P (MAP) Pulse Ox O2 Delivery O2 Flow Rate FiO2 03/26/17 07:27 36.6 75 19 158/98 (118) 93 Room Air 03/26/17 00:00 Room Air 03/25/17 23:11 36.8 67 16 127/73 (91) 96 Room Air 03/25/17 16:13 80 159/97 (117) 03/25/17 15:40 Room Air 03/25/17 15:35 36.8 83 18 178/98 (124) 96 Room Air Abdomen: non tender, soft Laboratory Results: Results Past 24 Hours Test 03/26/17 05:25 Range/Units White Blood Count 6.15 4.8-10.8 K/uL Red Blood Count 4.31 4.7-6.1 M/uL Hemoglobin 13.6 14.0-18.0 g/dL Hematocrit 38.9 42-52 % Mean Corpuscular Volume 90.3 80-100 fL Mean Corpuscular Hemoglobin 31.6 25-34 pg Mean Corpuscular Hemoglobin Concent 35.0 32-36 g/dl Platelet Count 181 130-400 K/uL Mean Platelet Volume 9.8 7.4-10.4 fL Neutrophils (%) (Auto) 51.0 % Lymphocytes (%) (Auto) 32.2 % Monocytes (%) (Auto) 12.2 % Eosinophils (%) (Auto) 3.7 % Basophils (%) (Auto) 0.7 % Neutrophils # (Auto) 3.14 1.4-6.5 K/uL Lymphocytes # (Auto) 1.98 1.2-3.4 K/uL Monocytes # (Auto) 0.75 0.11-0.59 K/uL Eosinophils # (Auto) 0.23 0-0.5 K/uL Basophils # (Auto) 0.04 0-0.2 K/uL RDW Standard Deviation 42.8 36.4-46.3 fL RDW Coefficient of Variation 12.9 11.5-14.5 % Immature Granulocyte % (Auto) 0.2 % Immature Granulocyte # (Auto) 0.01 0.00-0.02 K/uL Sodium Level 142 136-145 mmol/L Potassium Level 4.2 3.5-5.1 mmol/L Chloride Level 109 98-107 mmol/L Carbon Dioxide Level 27 21-32 mmol/L Anion Gap 6.0 3-11 mmol/L Blood Urea Nitrogen 9 7-18 mg/dl Creatinine 1.00 0.60-1.40 mg/dl Est Creatinine Clear Calc Drug Dose 71.0 ml/min Estimated GFR () 93.7 Estimated GFR (Non- 80.9 BUN/Creatinine Ratio 9.3 10-20 Random Glucose 97 70-99 mg/dl Calcium Level 8.8 8.5-10.1 mg/dl Assessment & Plan diverticulitis with micro perf improved, d/c per primary on po abx outpatient colonoscopy Patient seen and examined, labs reviewed, agree with above. Uncomplicated diverticulitis improving, advanced low residual diet, transition to oral antibiotics, discharged home. Patient needs outpatient colonoscopy in 6-8 weeks. Eulalia English, DO
[2017-03-26] MEDS: HEPARIN SOD 5000 UNIT/0.5 ML CARP SQ SCH (08:27)
[2017-03-26] MEDS: FAMOTIDINE IV INJ 20 MG in DEXTROSE 5% 100ML 100 ML IV SCH (08:27)
[2017-03-26] MEDS ORDERED: CPR500 PO ×2 (08:32→08:48)
[2017-03-26] MEDS ORDERED: METR500T PO ×2 (08:32→08:48)
--- NOTE | 2017-03-26 08:42 | Discharge Instructions ---
Discharge Instructions Date of Service Mar 26, 2017. Admission Reason for Admission: Acute Diverticulitis Discharge Discharge Diagnosis / Problem: Acute Diverticulitis with Microperferation and Small Early Abscess Discharge Goals Goal(s): Decrease discomfort, Improve function, Increase independence Activity Recommendations Activity Limitations: resume your previous activity . Instructions / Follow-Up Instructions / Follow-Up Acute Diverticulitis with Microperforation and Developing Abscess: - Continue oral antibiotics as prescribed. You will be taking two medications - Ciprofloxacin 500 mg twice a day until complete. You received a dose in the hospital today so only take your evening dose on 03/26 then resume twice a day on 03/27 - Flagyl 500 mg three times a day. Again you received doses in the hospital so take one in the evening of 03/26 and then resume THREE times a day on 03/27 - Continue a low fiber diet at this time. - You will need to have a follow-up colonoscopy in about 6-8 weeks. We will help establish you with a GI doctor to have this performed Follow-Up: - Please see your family doctor in 7-10 days - Please see the GI doctor (we will help establish an appointment) in 6-8 weeks for a colonoscopy Current Hospital Diet Patient's current hospital diet: Low Fiber Diet Discharge Diet Recommended Diet: Low Fiber Diet Pending Studies Studies pending at discharge: no Laboratory Results Hemoglobin A1c Test 03/24/17 05:57 Range/Units Estimated Average Glucose 108 mg/dl Hemoglobin A1c 5.4 4.5-5.6 % Lipid Panel Test 03/23/17 14:44 Range/Units Triglycerides Level 69 0-150 mg/dl Cholesterol Level 209 H 0-200 mg/dl HDL Cholesterol 77 mg/dl Cholesterol/HDL Ratio 2.7 LDL Cholesterol, Calculated 118 mg/dl Medical Emergencies . Who to Call and When: Medical Emergencies: If at any time you feel your situation is an emergency, please call 911 immediately. . Non-Emergent Contact Non-Emergency issues call your: Primary Care Provider Call Non-Emergent contact if: you have a fever, your pain is concerning you, you have any medication questions . . "Provider Documentation" section prepared by Federica Ray. . VTE Core Measure Inpt VTE Proph given/why not?: Unfractionated heparin ARIE, T.EHenrry Tay, SCD 's
[2017-03-26 09:35] VITALS: BP 158/98; PULSE 75; TEMP 36.6; O2SAT 93
--- NOTE | 2017-03-26 11:10 | Discharge Summary ---
Discharge Summary Date of Service Mar 26, 2017. Discharge Summary Admission Date: Mar 23, 2017 at 18:38 Discharge Date: Mar 26, 2017 Discharge Disposition: Home Principal Diagnosis: Acute Diverticulitis with Microperforation and Abscess Problems/Secondary Diagnoses: 1. Diverticulitis x 3 - including this episode Procedures: ABD/PELVIS IV AND ORAL CONT FINDINGS: There is mild dependent bibasilar atelectasis. Inferior cardiac chambers are unremarkable. Mild bilateral gynecomastia. The liver, spleen, gallbladder, pancreas and adrenal glands are within normal limits. Kidneys, ureters, urinary bladder are unremarkable. Prostate is mildly enlarged with central coarse parenchymal calcifications. Abdominal aorta is normal in course and caliber with mild atherosclerotic plaquing. No bulky adenopathy. There is no bowel obstruction. There is circumferential wall thickening with moderate surrounding inflammatory stranding and mucosal hyperemia involving the mid descending colon which appears to be centered around several diverticula within this region compatible with acute diverticulitis. There is a focal inflamed diverticulum or developing small intramural abscess, 1.4 x 1.6 cm seen on image 266. There is wall thickening and nondistention involving the descending colon distal to this area as well as the sigmoid colon. There is a small focus of extraluminal air anterior to the inflamed descending colon seen on image 248 compatible with microperforation. There is no bowel obstruction. Soft tissues are unremarkable. Bones are intact. Severe intervertebral disc space narrowing seen at L4-L5 and L5-S1. IMPRESSION: 1. Findings compatible with acute diverticulitis of the distal descending colon. Focus of extraluminal air anterior to the colon is compatible with associated microperforation. 2. Focally inflamed diverticulum or small developing intramural abscess is seen, 1.4 x 1.6 cm. Consultations: 1. General Surgery - Dr. English Medication Reconciliation New Medications: Ciprofloxacin (Ciprofloxacin HCl) 500 Mg Tab 500 MG PO BID for 11 Days, #21 TABS Take one pill tonight 03/26 then resume twice a day on 03/27 Metronidazole (Flagyl) 500 Mg Tab 500 MG PO TID for 11 Days, #31 TAB Take one dose this evening 03/26 and resume three times a day on 03/27 Discharge Exam Review of Systems: Constitutional: No fever, No chills ENT: No nasal symptoms, No sore throat Respiratory: No cough, No shortness of breath Cardiovascular: No chest pain, No palpitations Abdomen: No pain, No nausea, No vomiting, No diarrhea, No constipation, No GI bleeding Musculoskeletal: No swelling, No calf pain Genitourinary - Male: No dysuria Hematologic / Lymphatic: No abnormal bleeding/bruising Physical Exam: General Appearance: WD/WN, no apparent distress Eyes: sclerae normal ENT: hearing grossly normal Neck: supple, no JVD, trachea midline Respiratory/Chest: lungs clear, normal breath sounds, no respiratory distress, no accessory muscle use Cardiovascular: regular rate, rhythm, no gallop, no murmur Abdomen / GI: normal bowel sounds, non tender, soft Extremities: no pedal edema Neurologic/Psychiatric: alert, oriented x 3 Skin: normal color, warm/dry, no rash Hospital Course ADMISSION: Patient is a pleasant 61 y/o male, with PMHx of diverticulitis, who presented to the ED with complaints of LLQ abdominal pain x1 day. Pain started yesterday. Worse with movements; 0/10 with no movement. +decreased appetite. Presentation is similar to past episodes of acute diverticulitis- this is his 3 episode (previous episode in 2006). Last colonoscopy in 2006- diverticular disease, denies any other abnormalities. Patient denies any fever, chills, sweats, lightheadedness, dizziness, vision changes, CP, palpitations, edema, SOB , wheezing, cough, nausea, vomiting, diarrhea, urinary symptoms, melena, numbness/tingling, weakness, muscle/joint pain, anxiety/depression, active bleeding, or new skin discoloration/changes. HOSPITAL COURSE: Mr. Knapp was admitted for acute diverticulitis with microperforation and small abscess. He was treated with Ciprofloxacin and Flagyl with resolution of leukocytosis and pain resolved. He was discharged with oral antibiotics to complete a 14 days course. General surgery followed with no need for immediate surgical intervention and recommended follow-up colonoscopy in 6-8 weeks after resolution. Per and patient, they established an appointment with Dr. Hercules. Patient is afebrile and without leukocytosis. He is pain-free and tolerated a low fiber diet. He is optimal for D/C home with PCP follow-up and GI consultation. Total Time Spent: Greater than 30 minutes This includes examination of the patient, discharge planning, medication reconciliation, and communication with other providers. Discharge Instructions Please refer to the electronic Patient Visit Report (Discharge Instructions) for additional information. Additional Copies To Melani Hercules M.D.; Vinicio Gaines M.D.
== END 2017-03-26 10:43 | disposition home or self-care (01) | DRG 392 ==
LOC: C.EDB 13:26 → C.MSW 18:38 → ENRESERV 18:47
PROVIDERS: ADMIT Internal Medicine; ATTEND Internal Medicine
DX: K57.20 Diverticulitis of large intestine with perforation and abscess without bleeding (principal); I10 Essential (primary) hypertension

== ENCOUNTER → 2017-04-03 | Outpatient (CLI) | payer BC ==
[~2017-04-03] MED LIST: CPR500 PO; METR500T PO
[2017-04-03 16:49] LABS: CHOLESTEROL/HDL RATIO 2.9; PROSTATE SPECIFIC ANTIGEN 3.25 ng/ml (0.000-4.000)
== END | disposition home or self-care (01) ==
LOC: C.LABBFT 14:13
PROVIDERS: ATTEND Internal Medicine
DX: Z00.00 Encounter for general adult medical examination without abnormal findings (principal); Z12.5 Encounter for screening for malignant neoplasm of prostate

== ENCOUNTER 2017-10-24 19:00 | Emergency (ER) | payer BC ==
[~2017-10-24] VITALS: Ht 160 cm; Wt 76.7 kg
[2017-10-24 19:11] VITALS: Ht 160 cm; Wt 76.7 kg
[2017-10-24 19:37] LABS: BASO % 0.2 %; BASO ABS # 0.02 K/uL (0-0.2); EOS % 1.2 %; EOS ABS # 0.14 K/uL (0-0.5); HEMATOCRIT 44.9 % (42-52); HEMOGLOBIN 15.9 g/dL (14.0-18.0); IG# 0.01 K/uL (0.00-0.02); LYMPH % 23.9 %; LYMPH ABS # 2.69 K/uL (1.2-3.4); MEAN CORPUSCULAR HEMOGLOBIN 31.9 pg (25-34); MEAN CORPUSCULAR HGB CONC 35.4 g/dl (32-36); MEAN PLATELET VOLUME 9.8 fL (7.4-10.4); MONO ABS # 1.13 K/uL (0.11-0.59); NEUT % 64.6 %; NEUT ABS # 7.27 K/uL (1.4-6.5); PLATELET COUNT 190 K/uL (130-400); RED CELL DISTRIBUTION WIDTH SD 42.4 fL (36.4-46.3); WHITE BLOOD COUNT 11.26 K/uL (4.8-10.8)
[2017-10-24 19:54] LABS: ALBUMIN 4.1 gm/dl (3.4-5.0); CALCIUM 9.2 mg/dl (8.5-10.1); CREATININE 0.94 mg/dl (0.60-1.40); POTASSIUM 3.8 mmol/L (3.5-5.1)
--- NOTE | 2017-10-24 19:56 | EMERGENCY ROOM VISIT NOTE ---
History First contact with patient: 19:15 Chief Complaint: ABDOMINAL PAIN Stated Complaint: LITTLE PAIN L SIDE AREA Nursing Triage Summary: lower abd pain History of Present Illness The patient is a 62 year old male who presents to the Emergency Room with complaints of abdominal pain that started yesterday. The pain started diffusely across the abdomen. The patient thought that it was just gas. Today when he woke up, the pain migrated to the left lower quadrant. He describes it as a dull, ache. He has not taken anything for pain. No nausea or vomiting. No fever. Last bowel movement was this afternoon and reportedly loose. No dark stools or blood in his stool. The patient has a history of diverticulitis. The patient had a colonoscopy at the end of last year. He was not told of any abnormalities. He follows with Dr. Hercules. Review of Systems 10 system review performed and negative unless noted in HPI or below Past Medical/Surgical History Medical Problems: (1) Acute diverticulitis Social History Smoking Status: Never Smoker Alcohol Use: none Drug Use: none Marital Status: Housing Status: lives with family Occupation Status: employed Current/Historical Medications No Active Prescriptions or Reported Meds Physical Exam Vital Signs Date Time Temp Pulse Resp B/P (MAP) Pulse Ox O2 Delivery O2 Flow Rate FiO2 10/24/17 20:35 85 20 146/92 93 Room Air 10/24/17 19:51 81 20 156/97 96 Room Air 10/24/17 19:11 36.7 88 18 181/99 96 Room Air Physical Exam VITALS: Vitals are noted on the nurse's note and reviewed by myself. Vital signs stable. GENERAL: 62-year-old male, in no acute distress, nondiaphoretic, well-developed well-nourished. SKIN: The skin was without rashes, erythema, edema, or bruising. HEAD: Normocephalic atraumatic. MOUTH: Mucous membranes moist. NECK: Supple without nuchal rigidity. No JVD. HEART: Regular rate and rhythm without murmurs gallops or rubs. LUNGS: Clear to auscultation bilaterally without wheezes, rales or rhonchi. No accessory muscle use. ABDOMEN: Positive bowel sounds x 4.Soft, mild tenderness to palpation in the left lower quadrant, without organomegaly. No guarding or rebound tenderness. MUSCULOSKELETAL: No muscle atrophy, erythema, or edema noted. Strength 5/5 throughout. NEURO: Patient was alert and oriented to person place and time. Normal sensation to touch. No focal neurological deficits. Medical Decision & Procedures ER Provider Diagnostic Interpretation: CT abdomen and pelvis with IV and oral contrast IMPRESSION: 1. Findings consistent with acute uncomplicated diverticulitis in the distal descending colon. No zach CT evidence of perforation or abscess formation. 2. Pancolonic diverticulosis. Electronically signed by: Jaya Archibald M.D. 10/24/2017 10:23 PM Dictated Date/Time: 10/24/2017 10:18 PM The status of this Laboratory Results 10/24/17 19:25 Red Blood Count 4.99, Mean Corpuscular Volume 90.0, Mean Corpuscular Hemoglobin 31.9, Mean Corpuscular Hemoglobin Concent 35.4, Mean Platelet Volume 9.8, Neutrophils (%) (Auto) 64.6, Lymphocytes (%) (Auto) 23.9, Monocytes (%) (Auto) 10.0, Eosinophils (%) (Auto) 1.2, Basophils (%) (Auto) 0.2, Neutrophils # (Auto ) 7.27, Lymphocytes # (Auto) 2.69, Monocytes # (Auto) 1.13, Eosinophils # (Auto ) 0.14, Basophils # (Auto) 0.02 10/24/17 19:25 Test 10/24/17 19:25 10/24/17 20:42 White Blood Count 11.26 K/uL (4.8-10.8) Red Blood Count 4.99 M/uL (4.7-6.1) Hemoglobin 15.9 g/dL (14.0-18.0) Hematocrit 44.9 % (42-52) Mean Corpuscular Volume 90.0 fL (80-100) Mean Corpuscular Hemoglobin 31.9 pg (25-34) Mean Corpuscular Hemoglobin Concent 35.4 g/dl (32-36) Platelet Count 190 K/uL (130-400) Mean Platelet Volume 9.8 fL (7.4-10.4) Neutrophils (%) (Auto) 64.6 % Lymphocytes (%) (Auto) 23.9 % Monocytes (%) (Auto) 10.0 % Eosinophils (%) (Auto) 1.2 % Basophils (%) (Auto) 0.2 % Neutrophils # (Auto) 7.27 K/uL (1.4-6.5) Lymphocytes # (Auto) 2.69 K/uL (1.2-3.4) Monocytes # (Auto) 1.13 K/uL (0.11-0.59) Eosinophils # (Auto) 0.14 K/uL (0-0.5) Basophils # (Auto) 0.02 K/uL (0-0.2) RDW Standard Deviation 42.4 fL (36.4-46.3) RDW Coefficient of Variation 13.0 % (11.5-14.5) Immature Granulocyte % (Auto) 0.1 % Immature Granulocyte # (Auto) 0.01 K/uL (0.00-0.02) Anion Gap 7.0 mmol/L (3-11) Est Creatinine Clear Calc Drug Dose 74.7 ml/min Estimated GFR () 100.3 Estimated GFR (Non- 86.5 BUN/Creatinine Ratio 17.3 (10-20) Calcium Level 9.2 mg/dl (8.5-10.1) Total Bilirubin 0.9 mg/dl (0.2-1) Aspartate Amino Transf (AST/SGOT) 22 U/L (15-37) Alanine Aminotransferase (ALT/SGPT) 34 U/L (12-78) Alkaline Phosphatase 65 U/L (45-117) Total Protein 8.2 gm/dl (6.4-8.2) Albumin 4.1 gm/dl (3.4-5.0) Globulin 4.1 gm/dl (2.5-4.0) Albumin/Globulin Ratio 1.0 (0.9-2) Lipase 94 U/L (73-393) Urine Color YELLOW Urine Appearance CLEAR (CLEAR) Urine pH 5.0 (4.5-7.5) Urine Specific [place] 1.010 (1.000-1.030) Urine Protein NEG (NEG) Urine Glucose (UA) NEG (NEG) Urine Ketones NEG (NEG) Urine Occult Blood NEG (NEG) Urine Nitrite NEG (NEG) Urine Bilirubin NEG (NEG) Urine Urobilinogen NEG (NEG) Urine Leukocyte Esterase NEG (NEG) ED Course Patient was seen and examined Vital signs including blood pressure were reviewed medications list was verified with patient Labs were obtained, and a saline lock was established The patient declined pain medication Upon reevaluation, the patient was resting comfortably. We discussed his workup. He voiced understanding. We also discussed disposition options. He very much would like to be discharged home. I believe this is reasonable. The case was also discussed with my supervising physician who is in agreement with my plan. He was given 1 dose of Cipro and Flagyl po I reviewed discharge instructions the patient. They voiced understanding and had no further questions. Medical Decision Differential diagnosis: Diverticulitis, ureteral stone, colitis, bowel obstruction, UTI This patient is a 62-year-old male that presents to the emergency department with complaints of left lower quadrant abdominal pain. He has a history of diverticulitis. Upon review of old records, he had diverticulitis last March with a microperforation and possibly early abscess. On exam, the patient was tender in the left lower quadrant. For this reason, a CT of the abdomen and pelvis was ordered. This is consistent with acute uncomplicated diverticulitis of the descending colon. Labs reveal mild leukocytosis. The patient did not require any pain or nausea medications in the emergency department. He is not febrile. He is tolerating a diet. We talked about disposition options, and he would like to be discharged home on oral antibiotics. I believe this is reasonable as long as he is close follow-up with his PCP, GI doctor and surgeon. He is in agreement with this plan. He will return to the ER with worsening symptoms This chart was completed in part utilizing [employer] Voice Recognition software. Attempts were made to minimize the grammatical errors, random word insertions, pronoun errors and incomplete sentences. Any formal questions or concerns about the content, text or information contained within the body of this dictation should be directly addressed to the provider for clarification. Medication Reconcilliation Current Medication List: was personally reviewed by me Blood Pressure Screening Patient's blood pressure: Elevated blood pressure Blood pressure disposition: Elevated BP felt to be situational Impression Primary Impression: Acute diverticulitis Departure Information Dispostion Home / Self-Care Condition GOOD Prescriptions Ciprofloxacin Hcl (CIPRO) 500 Mg Tab 1 TAB PO BID for 10 Days, #20 TAB Prov: Avelina Vaca PA-C 10/24/17 Ciprofloxacin Hcl (CIPRO) 500 Mg Tab 500 MG PO BID for 10 Days, #20 TAB Prov: Avelina Vaca PA-C 4/7/18 Referrals Vinicio Gaines M.D. (PCP) Juan English, Melani Quintero M.D. Patient Instructions My [facility] Additional Instructions You have been evaluated in the emergency department for lower abdominal pain. A CAT scan confirms diverticulitis. There are no signs of abscess or perforation Please take the ENTIRE course of Cipro and Flagyl. Please do not drink alcohol while taking these medications. Please try to stay well hydrated. Drink plenty of liquids. It is very important to follow-up with your primary care doctor, GI doctor and surgeon. Please call your surgeon for a follow-up appointment first thing Thursday morning. Ideally, you should be seen next week. Numbers for your doctors have been provided. Please do not hesitate to return to the emergency department with any new, worsening or concerning symptoms; especially, worsening pain, persistent vomiting or diarrhea or fever. It was a pleasure participating in your care danielle
[2017-10-24 19:57] LABS: TOTAL PROTEIN 8.2 gm/dl (6.4-8.2)
[2017-10-24] MEDS ORDERED: OPTIRAY 320 IV PRN (21:45)
--- NOTE | 2017-10-24 22:24 | DIAGNOSTIC IMAGING REPORT ---
ABD/PELVIS IV AND ORAL CONT CLINICAL HISTORY: 62 years-old Male presenting with LLQ pain hx diverticulitis. TECHNIQUE: Multidetector CT of the abdomen and pelvis was performed after the administration of oral and intravenous contrast. IV contrast: 118 mL of Optiray 320. A dose lowering technique was used consistent with the principles of ALARA (as low as reasonably achievable). COMPARISON: 03/23/2017. CT DOSE (mGy.cm): The estimated cumulative dose is 385.14 mGy.cm. FINDINGS: Agricultural Engineer topogram: Unremarkable. Lung bases: Minimal basilar opacities, likely atelectasis. Normal heart size. No pericardial or pleural effusion. Liver: Normal morphology. No liver lesion. Patent hepatic vasculature. Biliary: No intrahepatic or extrahepatic biliary ductal dilatation. Normal gallbladder. Pancreas: Normal. Spleen: Normal. Splenule noted. Adrenal glands: Normal. Kidneys and ureters: Normal. No hydronephrosis. Bladder: Normal. Pelvic organs: Prostate and seminal vesicles normal. Bowel: Diverticulosis of the descending colon with inflammatory change at the previously noted site of inflammatory change (series 3 image 246). No bowel obstruction. Scattered diverticula in the colon noted elsewhere. The appendix is normal. Peritoneal cavity: No free fluid or intraperitoneal gas. No focal fluid collection to suggest abscess. No zach perforation is evident. Lymph nodes: No enlarged lymph nodes in the abdomen or pelvis. Vasculature: Aorta and IVC patent and normal in caliber. Abdominal wall: Normal. Musculoskeletal: Degenerative changes of the spine. IMPRESSION: 1. Findings consistent with acute uncomplicated diverticulitis in the distal descending colon. No azch CT evidence of perforation or abscess formation. 2. Pancolonic diverticulosis. Electronically signed by: Jaya Archibald M.D. 10/24/2017 10:23 PM Dictated Date/Time: 10/24/2017 10:18 PM
[2017-10-24] MEDS ORDERED: METRONIDAZOLE 250 MG TAB PO STA (22:46)
[2017-10-24] MEDS ORDERED: CIPROFLOXACIN 500 MG TAB PO STA (22:46)
[2017-10-24] MEDS ORDERED: CIPR-255 PO (22:48)
[2017-10-24 23:03] VITALS: BP 146/92; PULSE 82; TEMP 36.7; O2SAT 96
== END 2017-10-24 23:03 | disposition home or self-care (01) ==
LOC: C.EDB 19:00
DX: K57.92 Diverticulitis of intestine, part unspecified, without perforation or abscess without bleeding (principal)